=== PATIENT | female | born 1985 ===

== ENCOUNTER 2018-02-26 09:51 | Outpatient (CLI) | payer OTHER ==
[~2018-02-26] VITALS: Ht 175.3 cm; Wt 127.0 kg
== END 2018-02-26 10:10 | disposition home or self-care (01) ==
LOC: OFIC 805 09:51
DX: H90.3 Sensorineural hearing loss, bilateral (principal); H93.13 Tinnitus, bilateral; H61.23 Impacted cerumen, bilateral

== ENCOUNTER 2018-03-08 15:27 | Outpatient (CLI) | payer OTHER ==
[~2018-03-08] VITALS: Ht 152.4 cm; Wt 127.0 kg
== END 2018-03-08 15:40 | disposition home or self-care (01) ==
LOC: OFIC 805 15:27
DX: H93.13 Tinnitus, bilateral (principal); H61.23 Impacted cerumen, bilateral; H90.3 Sensorineural hearing loss, bilateral

== ENCOUNTER 2018-03-29 09:38 | Outpatient (CLI) | payer OTHER ==
[~2018-03-29] VITALS: Ht 152.4 cm; Wt 127.0 kg
== END 2018-03-29 10:00 | disposition home or self-care (01) ==
LOC: OFIC 805 09:38
DX: H90.3 Sensorineural hearing loss, bilateral (principal); H93.13 Tinnitus, bilateral